=== PATIENT | male | born 1990 | race Caucasian/White ===

== ENCOUNTER → 2021-03-28 12:56 | Outpatient (BNVA) | payer OTHER, SELFPAY | PROVIDERS: Visit Provider Physician Assistant | DX: S61.512A Laceration without foreign body of left wrist, initial encounter (principal); W26.9XXA Contact with unspecified sharp object(s), initial encounter; Z23 Encounter for immunization | CPT/HCPCS: 12002; 90715; 99203 ==

== ENCOUNTER → 2021-04-04 14:33 | Outpatient (BNVA) | payer OTHER, SELFPAY | PROVIDERS: Visit Provider Physician Assistant | DX: S61.512A Laceration without foreign body of left wrist, initial encounter (principal); X58.XXXA Exposure to other specified factors, initial encounter; Z48.02 Encounter for removal of sutures | CPT/HCPCS: 99212; 99213 ==